=== PATIENT | female | born 1970 | race Caucasian/White ===

== ENCOUNTER → 2019-05-14 10:17 | Outpatient (CLI) | payer BC, SELFPAY ==
--- NOTE | ~2019-05-14 | US_ITS ---
EXAMINATION: US transvaginal DATE: 05/14/2019 11:02 INDICATION: Evaluate endometrium. Previous ultrasound dated 01/27/2019 indicated menopause. Current s ays the questionnaire states the patient is not postmenopausal. Correlate clinically. Comparison:Ultrasound dated 01/27/2019 TECHNIQUE: Multiple endovaginal sonographic images of the pelvis performed. FINDINGS: The uterus measures 6 x 3.2 x 4.2 cm. The endometrial complex measures 6.5 mm. The right ovary measures 1.9 x 1.3 x 1.9 cm and the left ovary measures 5.2 x 3.1 x 4.6 cm. There are left ovarian cysts, largest measuring 2.6 cm. There is no free fluid in the pelvis. There are no ab normal masses seen on either side. IMPRESSION: 1. Endometrium measures 6.5 mm which is normal premenopausal and abnormal postmenopausal. Correlate c linically. 2: Left ovarian cysts, largest measuring 2.6 cm. Reviewed, dictated and finalized at location A. [facility] [employer] IMPRESSION: 1. Endometrium measures 6.5 mm which is normal premenopausal and abnormal postm enopausal. Correlate clinically. 2: Left ovarian cysts, largest measuring 2.6 cm.
== END ==
PROVIDERS: Visit Provider Obstetrics & Gynecology
DX: N83.202 Unspecified ovarian cyst, left side (principal); R93.89 Abnormal findings on diagnostic imaging of other specified body structures
CPT/HCPCS: 76830

== ENCOUNTER → 2019-10-05 12:42 | Outpatient (CLI) | payer BC, SELFPAY ==
--- NOTE | ~2019-10-05 | CT_ITS ---
EXAMINATION: CT chest wo con DATE: 10/05/2019 13:57 INDICATION: Lung nodule TECHNIQUE: Computed tomography (CT) of the chest was performed without intravenous contrast. The dose -length product was 631.30 mGy-cm. Automated exposure control and iterative reconstruction technique were employed. COMPARISON: CT abdomen dated 01/27/2019 FINDINGS: 6 mm left lower lobe nodule unchanged, image 99. Calcified granuloma right upper lobe. No f ocal airspace consolidation. No endobronchial lesions. No thoracic lymphadenopathy. No significant pl eural or pericardial effusion. The upper abdomen is unremarkable. There are calcified mediastinal lym ph nodes, consistent with chronic granulomatous disease. No acute osseous abnormality. No endobronchi al lesions.. IMPRESSION: 1. Stable 6 mm left lower lobe nodule. Follow-up low dose CT chest in 12 months recommended. Reviewed, dictated and finalized at location A.
== END ==
PROVIDERS: Visit Provider Family Medicine Sports Medicine
DX: I25.10 Atherosclerotic heart disease of native coronary artery without angina pectoris (principal); R91.1 Solitary pulmonary nodule
CPT/HCPCS: 71250

== ENCOUNTER → 2019-10-05 12:54 | Outpatient (CLI) | payer BC, SELFPAY ==
--- NOTE | ~2019-10-05 | US_ITS ---
EXAMINATION: US transvaginal DATE: 10/05/2019 14:12 INDICATION: Follow-up left ovarian cyst Comparison:05/14/2019 TECHNIQUE: Multiple endovaginal sonographic images of the pelvis performed. FINDINGS: The uterus measures 5.3 x 3.3 x 3.7 cm. There is a small uterine fibroid at the fundus melonie uring 1.3 x 1.1 x 1.1 cm. The endometrial complex measures 6 mm. The right ovary measures 1.3 x 0.9 x 0.9 cm and the left ovary measures 1.6 x 1.4 x 1.6 cm. There ar e small follicles in each ovary. There is no free fluid in the pelvis. There are no abnormal masses seen on either side. IMPRESSION: 1. Small uterine fibroid measuring 1.3 cm maximum dimension. Reviewed, dictated and finalized at location A.
== END ==
PROVIDERS: Visit Provider Obstetrics & Gynecology
DX: D25.9 Leiomyoma of uterus, unspecified (principal)
CPT/HCPCS: 76830

== ENCOUNTER → 2020-09-20 09:36 | Outpatient (CLI) | payer BC, SELFPAY ==
--- NOTE | ~2020-09-20 | CT_ITS ---
EXAMINATION: CT diagnostic chest wo con EXAM DATE: 09/20/2020 09:53 INDICATION: Lung nodule. TECHNIQUE: Spiral CT of the chest without contrast. Axial, coronal and sagittal images of the chest were reviewed. Coronal maximum intensity pixel images of chest reviewed. The dose-length product ( DLP) for this examination was 342.40 mGy-cm. The exposure was tailored according to patient size (au to mA exposure control), and iterative reconstruction (ASIR) was used as additional dose reduction te [place]. Comparison is made to prior examination from 10/05/2019. FINDINGS: There are 2 left lower lobe noncalcified granulomas. Calcified right upper lobe granuloma. These require no further follow-up. There is mild emphysema. There are no pleural or pericardial ef fusions. Tracheobronchial tree is patent. There is no mediastinal, hilar or axillary lymphadenopa thy. There is no pneumothorax. Heart normal in size. No evidence of coronary arterial calcifica tion. Upper abdomen is unremarkable. The bones are unremarkable. IMPRESSION: 1. Granulomata. 2. Mild emphysema. Reviewed, dictated and finalized at location B.
== END ==
PROVIDERS: PCP Family Medicine Sports Medicine; Visit Provider Family Medicine Sports Medicine
DX: R91.1 Solitary pulmonary nodule (principal); J43.9 Emphysema, unspecified
CPT/HCPCS: 71250